=== PATIENT | male | born 1990 | race Caucasian/White ===

== ENCOUNTER 2021-04-29 13:18 | Emergency (ER) | payer BC ==
[2021-04-29] MEDS ORDERED: HYDROCODON-ACE1 EAC4 PO (16:46)
[2021-04-29] MEDS ORDERED: IBUPROFEN800 MG PO (16:53)
[2021-04-29] MEDS ORDERED: CYCLOBENZAPRINE10 MG PO ×2 (16:53→16:55)
== END 2021-04-29 17:07 | disposition home or self-care (01) ==
LOC: ER1 13:18
DX: S22.42XA Multiple fractures of ribs, left side, initial encounter for closed fracture (principal); E11.9 Type 2 diabetes mellitus without complications; W01.10XA Fall on same level from slipping, tripping and stumbling with subsequent striking against unspecified object, initial encounter; Y92.009 Unspecified place in unspecified non-institutional (private) residence as the place of occurrence of the external cause
CPT/HCPCS: 71101; 72128; 73010; 96372; 99284; J1885

== ENCOUNTER 2021-06-10 09:11 | Emergency (ER) | payer BC, OTHER ==
[~2021-06-10 09:11] MED LIST: CYCLOBENZAPRINE10 MG PO; HYDROCODON-ACE1 EAC4 PO; IBUPROFEN800 MG PO
[2021-06-10 10:18] LABS: RED BLOOD COUNT 5.34 M/UL (4.20-5.50); WHITE BLOOD COUNT 10.1 K/UL (4.5-11.0)
[2021-06-10 10:40] LABS: BUN/CREATININE RATIO 18 (0-10)
== END 2021-06-10 12:20 | disposition home or self-care (01) ==
LOC: ER1 09:11
PROVIDERS: Emergency Medicine
DX: E11.65 Type 2 diabetes mellitus with hyperglycemia (principal); R55 Syncope and collapse; E88.89 Other specified metabolic disorders
CPT/HCPCS: 70450; 71045; 80053; 81001; 82550; 82553; 83605; 83880; 84484; 85025; 93005; 99284